=== PATIENT | female | born 1950 | race Caucasian/White ===

== ENCOUNTER 2018-06-18 18:42 | Emergency (ER) | payer OTHER ==
[~2018-06-18] VITALS: Ht 165.1 cm; Wt 64.4 kg
[~2018-06-18 18:42] MED LIST: COZAAR50 MG; CYMBALTA60 MG; KOMBIGLYZE XR1 EAC1; NEURONTIN600 MG; SYNTHROID112 MCG
[2018-06-18] MEDS ORDERED: CRESTOR5 MG (19:00)
[2018-06-18] MEDS ORDERED: FORTAMET1000 MG (19:00)
[2018-06-18] MEDS ORDERED: SYNTHROID88 MCG (19:01)
== END 2018-06-18 22:21 | disposition home or self-care (01) ==
LOC: ER 18:42
DX: J09.X2 Influenza due to identified novel influenza A virus with other respiratory manifestations (principal)

== ENCOUNTER 2021-04-17 01:58 | Emergency (ER) | payer OTHER ==
[~2021-04-17] VITALS: Ht 165.1 cm; Wt 68.0 kg
[~2021-04-17 01:58] MED LIST changes: +CRESTOR5 MG; +FORTAMET1000 MG; +SYNTHROID88 MCG
== END 2021-04-17 09:33 | disposition home or self-care (01) ==
LOC: ER 01:58
DX: K59.09 Other constipation (principal); R10.84 Generalized abdominal pain

== ENCOUNTER 2021-09-10 08:00 | Outpatient (CLI) | payer OTHER | END 2021-09-10 08:30 | disposition home or self-care (01) | LOC: PPH VACUNA 08:00 | PROVIDERS: ATTEND Emergency Medicine Pediatric Emergency Medicine | DX: Z23 Encounter for immunization (principal) ==

== ENCOUNTER 2022-02-14 07:53 | Emergency (ER) | payer OTHER ==
[~2022-02-14] VITALS: Ht 165.1 cm; Wt 72.6 kg
[2022-02-14] MEDS ORDERED: OSEL75CA PO (10:52)
== END 2022-02-14 11:05 | disposition home or self-care (01) ==
LOC: ER 07:53
DX: J10.1 Influenza due to other identified influenza virus with other respiratory manifestations (principal); Z20.822 Contact with and (suspected) exposure to COVID-19; I10 Essential (primary) hypertension; Z88.8 Allergy status to other drugs, medicaments and biological substances